=== PATIENT | female | born 1995 | race American Indian/Alaskan Native ===

== ENCOUNTER 2016-10-17 11:38 | Emergency (ER) | payer SELFPAY ==
[2016-10-17 12:19] VITALS: BP 116/71
--- NOTE | 2016-10-17 12:34 | Emergency Department Report ---
Entered by HEYDI LOGAN, acting as scribe for JESSA CEDENO NP. Chief Complaint: Abdominal Pain Stated Complaint: ABD PAIN Time Seen by Provider: 10/17/16 12:23 - HPI History of Present Illness: 20 y/o non-toxic, non ill-appearing female in no acute distress presents to ED c /o nasuea, vomiting, diffuse abdominal pain since this morning. Reports her menstrual cycle began yesterday. PSHx appendectomy. Denies pelvic pain. Reports she self-diagnosed herself with a UTI and treated with cranberry juice. Notes mild associated back pain. - ROS Review of Systems: + abdominal pain diffuse, nausea, vomiting, back pain - pelvic pain - Exam Vital Signs: Vital Signs 10/17/16 12:14 Temperature 98.4 F Pulse Rate 72 Respiratory 18 Rate Blood Pressure 116/71 O2 Sat by Pulse 100 Oximetry Physical Exam: Diffuse pain, RUQ pain with no point tenderness, non-distended, normal bowel sounds x 4, negative CVA tenderness MSE screening note: Focused history and physical exam performed. Due to findings the following was ordered: CBC, CMP, lipase, UA, hcg serum ED Disposition for MSE Condition: Stable Instructions: Abdominal Pain (ED) This documentation as recorded by the scribe,HEYDI LOGAN,accurately reflects the service I personally performed and the decisions made by WILIAN anne MARTIN, JAVIER.
[2016-10-17 12:54] LABS: Basophils % (Auto) 0.8 % (0.0-1.8); Eosinophils % (Auto) 0.4 % (0.0-4.3); Hematocrit 39.7 % (30.3-42.9); Hemoglobin 13.3 gm/dl (10.1-14.3); Mean Corpuscular HGB Conc 34 % (30-34); Mean Corpuscular Hemoglobin 28 pg (28-32); Mean Corpuscular Volume 83 fl (79-97); Platelet Count 229 K/mm3 (140-440); Red Blood Count 4.79 M/mm3 (3.65-5.03); Red Cell Distribution Width 13.8 % (13.2-15.2); White Blood Count 5.5 K/mm3 (4.5-11.0)
[2016-10-17 13:05] LABS: Alanine Aminotransferase 13 units/L (7-56); Albumin 4.5 g/dL (3.9-5); Albumin/Globulin Ratio 1.6 %; Alkaline Phosphatase 60 units/L (35-129); Anion Gap 19 mmol/L; BUN/Creatinine Ratio 14.28; Blood Urea Nitrogen 10 mg/dL (7-17); Calcium 9.3 mg/dL (8.4-10.2); Carbon Dioxide 24 mmol/L (22-30); Glucose 91 mg/dL (65-100); Lipase 15 units/L (13-60); Potassium 3.9 mmol/L (3.6-5.0); Sodium 140 mmol/L (137-145); Total Protein 7.4 g/dL (6.3-8.2)
[2016-10-17 13:46] LABS: Bacteria,Urine 1+ /HPF (Negative); Bilirubin,Urine NEG (Negative); Blood,Urine LG (Negative); Ketones,Urine 20 mg/dL (Negative); Leukocyte Esterase,Urine NEG (Negative); Mucus,Urine 3+ /HPF; Nitrite,Urine NEG (Negative)
--- NOTE | 2016-10-20 19:23 | ED Elopement Review ---
ED Pt Elopement review - Results review Lab results: Laboratory Tests 10/17/16 10/17/16 10/17/16 12:32 12:32 12:34 WBC 5.5 RBC 4.79 Hgb 13.3 Hct 39.7 MCV 83 MCH 28 MCHC 34 RDW 13.8 Plt Count 229 Lymph % (Auto) 10.8 L Clarke % (Auto) 9.7 H Eos % (Auto) 0.4 Baso % (Auto) 0.8 Lymph # 0.6 L Clarke # 0.5 Eos # 0.0 Baso # 0.0 Seg Neutrophils % 78.3 H Seg Neutrophils # 4.3 Sodium 140 Potassium 3.9 Chloride 101.0 Carbon Dioxide 24 Anion Gap 19 BUN 10 Creatinine 0.7 Estimated GFR > 60 BUN/Creatinine Ratio 14.28 Glucose 91 Calcium 9.3 Total Bilirubin 0.60 AST 18 ALT 13 Alkaline Phosphatase 60 Total Protein 7.4 Albumin 4.5 Albumin/Globulin Ratio 1.6 Lipase 15 HCG, Qual Negative Urine Color Urine Turbidity Urine pH Ur Specific [place] Urine Protein Urine Glucose (UA) Urine Ketones Urine Blood Urine Nitrite Urine Bilirubin Urine Urobilinogen Ur Leukocyte Esterase Urine WBC (Auto) Urine RBC (Auto) U Epithel Cells (Auto) Urine Bacteria (Auto) Urine Mucus 10/17/16 13:12 WBC RBC Hgb Hct MCV MCH MCHC RDW Plt Count Lymph % (Auto) Clarke % (Auto) Eos % (Auto) Baso % (Auto) Lymph # Clarke # Eos # Baso # Seg Neutrophils % Seg Neutrophils # Sodium Potassium Chloride Carbon Dioxide Anion Gap BUN Creatinine Estimated GFR BUN/Creatinine Ratio Glucose Calcium Total Bilirubin AST ALT Alkaline Phosphatase Total Protein Albumin Albumin/Globulin Ratio Lipase HCG, Qual Urine Color Yellow Urine Turbidity Clear Urine pH 6.0 Ur Specific [place] 1.026 Urine Protein 30 mg/dl Urine Glucose (UA) Neg Urine Ketones 20 Urine Blood Lg Urine Nitrite Neg Urine Bilirubin Neg Urine Urobilinogen 2.0 Ur Leukocyte Esterase Neg Urine WBC (Auto) 4.0 Urine RBC (Auto) 16.0 U Epithel Cells (Auto) 3.0 Urine Bacteria (Auto) 1+ Urine Mucus 3+ - Call Back decision Pt Call Back Decision: No action required
== END 2016-10-17 13:36 | disposition left against medical advice (07) ==
LOC: ED 11:38
DX: R11.2 Nausea with vomiting, unspecified (principal); R10.84 Generalized abdominal pain; M54.9 Dorsalgia, unspecified; Z53.21 Procedure and treatment not carried out due to patient leaving prior to being seen by health care provider
CPT/HCPCS: 36415; 80053; 81001; 83690; 84703; 85025